=== PATIENT | female | born 1935 | race Caucasian/White ===

== ENCOUNTER → 2017-10-06 | Day surgery (SDC) | payer MEDICARE, OTHER ==
[~2017-10-06] MED LIST: AREDS PO; CARAFATE1 GM/10 ML PO; FENTANYL CITRATE/PF 100MCG/2 ML INJ ONE; FUROSEMIDE40 MG PO; IPRAT-ALBUT 0.5-3 ML NEB; LASIX80 MG PO; LIDOCAINE HCL 2% LOCAL INJ 5 ML SDV VIAL INJ ONE; MONTELUKAST SOD10 MG PO; NEXIUM40 MG PO; NORCO 10-325 T1 EACH PO; PROAIR HFA INH8.5 GM INH; PROPOFOL IV EMULSION 10 MG/ML 20 ML VIAL ONE; RESTASIS1 EACH OU; SPIRONOLACTONE PO; WELLBUTRIN XL300 MG PO
--- NOTE | 2017-10-06 11:08 | Operative Report ---
DATE OF PROCEDURE: October 06, 2017 PROCEDURE PERFORMED: Esophagogastroduodenoscopy with esophageal dilatation. PREOPERATIVE DIAGNOSIS: Esophageal stricture. POSTOPERATIVE DIAGNOSIS: Esophageal stricture. PREOPERATIVE MEDICATIONS: Consisted of general anesthesia. DESCRIPTION OF PROCEDURE: Under fluoroscopic guidance, the Olympus Cosyforyou video gastroscope was inserted into the patient's oropharynx, advanced to the esophagus and down to 36 cm where we encountered a stricture. The scope could not be passed beyond this area. We then inserted the Savary guidewire. Under fluoroscopic guidance, we positioned it in the stomach. At this point, we withdrew the endoscope and dilated the esophagus with a 12, 14, and 15-mm Savary dilator under fluoroscopic guidance. At this point, it was decided after 3 different sizes to stop the procedure. The guidewire and dilator were pulled from the patient's stomach, esophagus, hypopharynx, oropharynx and out of the patient's mouth, and the procedure was ended. In conclusion, we have an esophageal stricture, recurrent, fairly tight, would not allow the endoscope to pass. It was dilated with the Savary dilators, 12, 14, and 15 mm. Job#: [id number]
== END | disposition home or self-care (01) ==
LOC: OR 07:22
PROVIDERS: ATTEND Internal Medicine Gastroenterology
DX: K22.2 Esophageal obstruction (principal); K21.9 Gastro-esophageal reflux disease without esophagitis; K44.9 Diaphragmatic hernia without obstruction or gangrene; J44.9 Chronic obstructive pulmonary disease, unspecified; I10 Essential (primary) hypertension; Z88.0 Allergy status to penicillin; Z88.2 Allergy status to sulfonamides; Z88.8 Allergy status to other drugs, medicaments and biological substances; Z88.6 Allergy status to analgesic agent; Z88.1 Allergy status to other antibiotic agents; Z91.041 Radiographic dye allergy status; Z01.810 Encounter for preprocedural cardiovascular examination; Z96.642 Presence of left artificial hip joint
CPT/HCPCS: 43248; 93005; J2001; 43450; 76000

== ENCOUNTER 2017-12-17 19:22 | Emergency (ER) | payer MEDICARE, OTHER ==
[~2017-12-17] VITALS: Ht 170.2 cm; Wt 55.3 kg
[~2017-12-17 19:22] MED LIST changes: -FENTANYL CITRATE/PF 100MCG/2 ML INJ ONE; -LIDOCAINE HCL 2% LOCAL INJ 5 ML SDV VIAL INJ ONE; -PROPOFOL IV EMULSION 10 MG/ML 20 ML VIAL ONE
--- OUTSIDE RECORDS SUMMARY | 2017-12-17 19:27 | XMS REPORT | Continuity of Care Document ---
Author Author [facility] Interface Address Unknown Phone Unavailable Problems Problem Status Onset Date Classification Date Reported Comments Source FALL Active 04/23/2015 [facility] AC SUPERIOR AND INFERIOR PUBIC RAMI FX O Active 04/23/2015 [facility] S/P FALL, FRACTURE OF HIP, S/P L HEMIARTHROPLASTY ON Active 02/18/2011 [facility] Back pain Active Problem 04/29/2015 [facility] Congestive heart failure Active Problem 04/29/2015 [facility] COPD Resolved Problem 04/29/2015 [facility] Knee pain Active Problem 04/29/2015 [facility] ORIF - Open reduction and internal fixation of fracture Active Problem 04/29/2015 [facility] Osteoporosis Resolved Problem 04/29/2015 [facility] Back pain Active Problem 02/24/2011 [facility] Congestive heart failure Active Problem 02/24/2011 [facility] COPD Active Problem 02/24/2011 [facility] Knee pain Active Problem 02/24/2011 [facility] ORIF - Open reduction and internal fixation of fracture Active Problem 02/24/2011 [facility] Osteoporosis Active Problem 02/24/2011 [facility] FX NECK OF FEMUR NOS-OPN Active [facility] UNSP FRACTURE OF RIGHT PUBIS, INIT FOR C Active [facility] Medications Medication Details Route Status Patient Instructions Ordering Provider Order Date Source docusate sodium 100 mg oral capsule 100 mg, 1 cap, Route: PO, Drug form: CAP, BID, Dosing Weight 72.727, kg, Start date: 04/26/15 17:00:00, Duration: 30 day, Stop date: 05/26/15 9:00:00Notes: (Same as: Colace) (Do Not Crush) Inactive 04/26/2015 [facility] 200 ACTUAT Albuterol 0.09 MG/ACTUAT Metered Dose Inhaler [ProAir HFA] 1 puff, Route: INHALER, Drug Form: AERO/A, Dosing Weight 72.727, kg, QID, PRN Wheezing, Start date: 04/24/15 13:45:00, Duration: 30 day, Stop date: 05/24/15 13:44:00Notes: Same as: Ventolin HFA WASTE: Aerosol - Return to Pharmacy No Longer Active 04/24/2015 [facility] 200 ACTUAT Albuterol 0.09 MG/ACTUAT Metered Dose Inhaler [ProAir HFA] 1 puff, INHALER, QID, PRN for wheezing, # 8.5 gm, 0 Refill(s) Active 04/24/2015 [facility] montelukast 10 mg oral tablet 10 mg=1 tab, PO, Bedtime, # 30 tab, 0 Refill(s) Active 04/24/2015 [facility] furosemide 80 mg oral tablet 80 mg=1 tab, PO, Daily, # 30 tab, 0 Refill(s) Active 04/24/2015 [facility] spironolactone 100 mg oral tablet 100 mg=1 tab, PO, Daily, # 30 tab, 0 Refill(s) Active 04/24/2015 [facility] Acetaminophen 325 MG / Hydrocodone Bitartrate 10 MG Oral Tablet [[place] 10/325] 1 tab, PO, Q4H, PRN for pain, # 24 tab, 0 Refill(s) Active 04/24/2015 [facility] Esomeprazole 40 MG Enteric Coated Capsule 40 mg=1 cap, PO, Daily, # 30 cap, 0 Refill(s) Active 04/24/2015 [facility] Combivent Respimat 1 puff, INHALATION, QID, 0 Refill(s) Active 04/24/2015 [facility] Acetaminophen 325 MG / Hydrocodone Bitartrate 10 MG Oral Tablet [[place] 10/325] 1 tab, Route: PO, Drug Form: TAB, Dosing Weight 72.727, kg, Q4H, PRN Pain Score 6-10, Start date: 04/24/15 13:26:00, Duration: 30 day, Stop date: 05/24/15 13:25:00Notes: Do not exceed 4gm/day of acetaminophen. (Same as: [place] 325/10) No Longer Active 04/24/2015 [facility] Lasix 80 mg, 2 tab, Route: PO, Drug form: TAB, Daily, Dosing Weight 72.727, kg, Start date: 04/24/15 9:00:00, Duration: 30 day, Stop date: 05/23/15 9:00:00Notes: (Same as: Lasix) May cause GI upset. Give with food or milk. No Longer Active 04/24/2015 [facility] Spironolactone 100 mg, 2 tab, Route: PO, Drug form: TAB, Daily, Dosing Weight 72.727, kg, Start date: 04/24/15 9:00:00, Duration: 30 day, Stop date: 05/23/15 9:00:00Notes: (Same As: Aldactone) No Longer Active 04/24/2015 [facility] Protonix 40 mg, 1 tab, Route: PO, Drug form: ECTAB, Daily, Dosing Weight 72.727, kg, Start date: 04/24/15 9:00:00, Duration: 30 day, Stop date: 05/23/15 9:00:00Notes: Tablet should not be chewed or crushed. (Same as: Protonix) No Longer Active 04/24/2015 [facility] Bupropion 300 mg, 3 tab, Route: PO, Drug form: TAB, BID, Dosing Weight 72.727, kg, Start date: 04/23/15 22:30:00, Duration: 30 day, Stop date: 05/23/15 21:00:00Notes: (Same As: Wellbutrin) No Longer Active 04/24/2015 [facility] Singulair 10 mg, 1 tab, Route: PO, Drug form: TAB, Bedtime, Dosing Weight 72.727, kg, Start date: 04/23/15 21:00:00, Duration: 30 day, Stop date: 05/22/15 21:00:00Notes: (Same as:Singulair) No Longer Active 04/24/2015 [facility] Enoxaparin 30 mg, 0.3 mL, Route: SUB-Q, Drug form: INJ, [id number], Dosing Weight 72.727, kg, Start date: 04/23/15 19:00:00, Duration: 30 day, Stop date: 05/22/15 19:00:00Notes: (Same as: Lovenox) No Longer Active 04/24/2015 [facility] Tessalon Perles 100 mg, 1 cap, Route: PO, Drug form: CAP, TID, Dosing Weight 72.727, kg, PRN Cough, Start date: 04/23/15 18:12:00, Duration: 30 day, Stop date: 05/23/15 18:11:00Notes: (Same As: Pop Heard) "Do Not Crush" No Longer Active 04/24/2015 [facility] Dextromethorphan Hydrobromide 2 MG/ML / Guaifenesin 20 MG/ML Oral Solution 10 ml, Route: PO, Drug Form: SYRP, Dosing Weight 72.727, kg, Q4H, PRN Cough, Start date: 04/23/15 18:12:00, Duration: 30 day, Stop date: 05/23/15 18:11:00Notes: (dextromethorphan-guaifenesin 10-100mg/5ml 10 ml oral SOLN ud) (Same as: Reganitusaden PANTOJA) No Longer Active 04/24/2015 [facility] Tylenol 650 mg, 2 tab, Route: PO, Drug form: TAB, Q6H, Dosing Weight 72.727, kg, PRN Pain 1-3/Temp > 100.4 F, Start date: 04/23/15 18:12:00, Duration: 30 day, Stop date: 05/23/15 18:11:00Notes: Do not exceed 4 gm/day. (Same as: Tylenol) No Longer Active 04/24/2015 [facility] Albuterol 0.833 MG/ML / Ipratropium [place] 0.167 MG/ML Inhalant Solution [DuoNeb] 3 ml, Route: NEB, Drug Form: SOLN, Dosing Weight 72.727, kg, PRN, PRN Respiratory Protocol, Start date: 04/23/15 18:12:00, Duration: 30 day, Stop date: 05/23/15 19:11:00Notes: (Same as: Duoneb) No Longer Active 04/24/2015 [facility] Ondansetron 4 mg, 2 mL, Route: IVP, Drug form: INJ, Q6H, Dosing Weight 72.727, kg, PRN Nausea & Vomiting, Start date: 04/23/15 18:04:00, Duration: 30 day, Stop date: 05/23/15 18:03:00Notes: (Same as: Zofran) MEDICATION WASTE Product Size: 4 mg Product Wasted: ___ mg No Longer Active 04/24/2015 [facility] Acetaminophen 325 MG / Hydrocodone Bitartrate 5 MG Oral Tablet 1 tab, Route: PO, Drug Form: TAB, Dosing Weight 72.727, kg, Q4H, PRN Pain Score 4-6, Start date: 04/23/15 18:04:00, Duration: 30 day, Stop date: 05/23/15 18:03:00Notes: (Same as: [place] 325/5) Do not exceed 4gm/day of acetaminophen. No Longer Active 04/24/2015 [facility] Morphine 4 mg, 2 mL, Route: IVP, Drug form: INJ, Q4H, Dosing Weight 72.727, kg, PRN Pain Score 7-10, Start date: 04/23/15 18:04:00, Duration: 30 day, Stop date: 05/23/15 18:03:00Notes: (Same as:MORPhine Sulfate) No Longer Active 04/24/2015 [facility] Zofran 4 mg, Route: IVP, Drug form: INJ, ONCE, Dosing Weight 72.727, kg, Priority: STAT, Start date: 04/23/15 15:01:00, Stop date: 04/23/15 15:01:00 Inactive 04/23/2015 [facility] Morphine 4 mg, Route: IVP, Drug form: INJ, ONCE, Dosing Weight 72.727, kg, Priority: STAT, Start date: 04/23/15 15:01:00, Stop date: 04/23/15 15:01:00 Inactive 04/23/2015 [facility] Saline Flush 0.9% 10 mL, Route: IVP, Drug Form: INJ, Dosing Weight 72.727, kg, PRN, PRN Line Flush, Start date: 04/23/15 13:45:00, Duration: 30 day, Stop date: 05/23/15 14:44:00Notes: (Same as: BD Posiflush) No Longer Active 04/23/2015 [facility] Sodium Chloride 0.154 MEQ/ML Injectable Solution 500 mL, 500 ml/hr, Infuse Over: 1 hr, Route: IV, ONCE, Priority: STAT, Dosing Weight 72.727 kg, Start date: 04/23/15 13:45:00, Duration: 1 doses or times, Stop date: 04/23/15 13:45:00 Inactive 04/23/2015 [facility] [place] 10/325 oral tablet 2 tab, PO, Q4H, PRN, 30 tab, Pain, Substitution Allowed, Maintenance, TAB PO Active Amezquita 02/22/2011 [facility] acetaminophen 325 mg oral tablet 650 mg, 2 tab, PO, Q4H, PRN, 100 tab, Pain Score 1-3, Substitution Allowed, TAB PO Active Amezquita 02/22/2011 [facility] Lovenox 40 mg/0.4 mL subcutaneous solution 40 mg, 0.4 mL, SUB-Q, Daily, 5 mL, Substitution Allowed, SOLN SUB-Q Active Amezquita 02/22/2011 [facility] potassium chloride 10 mEq oral tablet, extended release 10 mEq, 1 tab, PO, Daily, 30 tab, Substitution Allowed, ERTAB PO Active Amezquita 02/22/2011 [facility] Lidoderm 5% topical film (patch) 1 patch, TOP, Daily, 30 patch, Substitution Allowed, Remove after 12 hours, FILMRemove after 12 hours TOP Active Amezquita 02/22/2011 [facility] ferrous sulfate 325 mg oral enteric coated tablet 325 mg, 1 tab, PO, Daily, 100 tab, Substitution Allowed, ECTAB PO Active Amezquita 02/22/2011 [facility] Lasix 40 mg oral tablet 40 mg, 1 tab, PO, Daily, 30 tab, Substitution Allowed, TAB PO Active Amezquita 02/22/2011 [facility] Wellbutrin SR 150 mg oral tablet, extended release 300 mg, 2 tab, PO, BID, 60 tab, Substitution Allowed, ERTAB PO Active Amezquita 02/22/2011 [facility] lidocaine patch removal 1 patch, Route: TOP, Bedtime, Drug form: ERFILM, Start date: 02/21/11 21:00:00, Duration: 30 day, Stop date: 03/22/11 21:00:00 TOP No Longer Active Amezquita 02/22/2011 [facility] Lidoderm 5% topical film (patch) 1 patch, Route: TOP, Daily, Drug form: FILM, Start date: 02/21/11 11:00:00, Duration: 30 day, Stop date: 03/23/11 9:00:00, Remove after 12 hoursRemove after 12 hours TOP No Longer Active Amezquita 02/21/2011 [facility] Nexium 40 mg, Route: PO, Daily, Start date: 02/20/11 9:00:00, Duration: 30 day, Stop date: 03/21/11 9:00:00 PO No Longer Active Amezquita 02/20/2011 [facility] Protonix 40 mg, Route: PO, Drug form: ECTAB, Before Dinner, Start date: 02/19/11 16:30:00, Duration: 30 day, Stop date: 03/20/11 16:30:00 PO No Longer Active Amezquita 02/19/2011 [facility] patients home med Nexium 40 mg patients home med Nexium 40 mg, 40 mg, Drug form: MISC, Route: PO, Before Breakfast, 02/19/11 16:30:00, Stop date: 03/20/11 7:30:00 PO No Longer Active Amezquita 02/19/2011 [facility] Protonix 40 mg, 1 tab, Route: PO, Drug form: ECTAB, QAM, Start date: 02/19/11 13:00:00, Duration: 30 day, Stop date: 03/21/11 9:00:00 PO No Longer Active Amezquita 02/19/2011 [facility] [place] 10/325 oral tablet 2 tab, Route: PO, Drug Form: TAB, Q4H, PRN Pain, Start date: 02/19/11 9:54:00, Duration: 30 day, Stop date: 03/21/11 9:53:00 PO No Longer Active Amezquita 02/19/2011 [facility] Lasix 40 mg oral tablet 40 mg, 1 tab, Route: PO, Drug form: TAB, Daily, Start date: 02/19/11 9:00:00, Duration: 30 day, Stop date: 03/20/11 9:00:00 PO No Longer Active Amezquita 02/19/2011 [facility] Lovenox 40 mg, Route: SUB-Q, Daily, Start date: 02/19/11 9:00:00, Duration: 30 day, Stop date: 03/20/11 9:00:00 SUB-Q No Longer Active Amezquita 02/19/2011 [facility] potassium chloride 10 mEq oral tablet, extended release 10 mEq, 1 tab, Route: PO, Drug form: ERTAB, Daily, Start date: 02/19/11 9:00:00, Duration: 30 day, Stop date: 03/20/11 9:00:00 PO No Longer Active Boccardo 02/19/2011 [facility] Wellbutrin SR 300 mg, 2 tab, Route: PO, Drug form: ERTAB, BID, Start date: 02/19/11 9:00:00, Duration: 30 day, Stop date: 03/20/11 17:00:00 PO No Longer Active Amezquita 02/19/2011 [facility] ferrous sulfate 325 mg, 1 tab, Route: PO, Drug form: ECTAB, Daily, Start date: 02/19/11 9:00:00, Duration: 30 day, Stop date: 03/20/11 9:00:00 PO No Longer Active Amezquita 02/19/2011 [facility] docusate 100 mg, 1 cap, Route: PO, Drug form: CAP, BID, Start date: 02/19/11 9:00:00, Duration: 30 day, Stop date: 03/20/11 17:00:00 PO No Longer Active Amezquita 02/19/2011 [facility] ferrous sulfate 324 mg oral tablet 324 mg, 1 tab, Route: PO, Drug form: TAB, Daily, Start date: 02/19/11 9:00:00, Duration: 30 day, Stop date: 03/20/11 9:00:00 PO No Longer Active Amezquita 02/19/2011 [facility] Combivent inhalation aerosol with adapter 2 puff, INHALER, QID, PRN, 14 gm, copd, Substitution Allowed, Maintenance INHALER No Longer Active 02/19/2011 [facility] Wellbutrin XL 300 mg, PO, BID, Substitution Allowed, TAB PO No Longer Active 02/19/2011 [facility] Lasix 80 mg oral tablet 80 mg, 1 tab, PO, Daily, Substitution Allowed PO No Longer Active 02/19/2011 [facility] Combivent inhalation aerosol with adapter 2 inhalation, Route: INHALATION, Drug Form: AERO/A, QID, Start date: 02/18/11 21:00:00, Duration: 30 day, Stop date: 03/20/11 17:00:00 INHALATION No Longer Active Amezquita 02/19/2011 [facility] zolpidem 5 mg, Route: PO, Drug form: TAB, Bedtime, PRN Insomnia, Start date: 02/18/11 19:56:00, Duration: 30 day, Stop date: 03/20/11 19:55:00 PO No Longer Active Amezquita 02/19/2011 [facility] Milk of Magnesia 30 mL, Route: PO, Drug Form: SUSP, Daily, PRN Constipation, Start date: 02/18/11 19:56:00, Duration: 30 day, Stop date: 03/20/11 19:55:00 PO No Longer Active Amezquita 02/19/2011 [facility] bisacodyl 10 mg, 1 supp, Route: OK, Drug form: SUPP, Bedtime, PRN Constipation, Start date: 02/18/11 19:56:00, Duration: 30 day, Stop date: 03/20/11 19:55:00 OK No Longer Active Amezquita 02/19/2011 [facility] acetaminophen-hydrocodone 325 mg-10 mg oral tablet 1 tab, Route: PO, Drug Form: TAB, Q4H, PRN Pain Score 7-10, Start date: 02/18/11 19:56:00, Duration: 30 day, Stop date: 03/20/11 19:55:00 PO No Longer Active Amezquita 02/19/2011 [facility] acetaminophen 650 mg, 2 tab, Route: PO, Drug form: TAB, Q4H, PRN Pain Score 1-3, Start date: 02/18/11 19:56:00, Duration: 30 day, Stop date: 03/20/11 19:55:00 PO No Longer Active Amezquita 02/19/2011 [facility] Saline Flush 0.9% 3 mL, Route: IVP, Drug Form: INJ, Q8H, PRN Line Flush, Start date: 02/18/11 19:56:00, Duration: 30 day, Stop date: 03/20/11 19:55:00, Administer at least once every 8 hoursAdminister at least once every 8 hours IVP No Longer Active Amezquita 02/19/2011 [facility] Ambien 10 mg, 1 tab, Route: PO, Drug form: TAB, Bedtime, PRN Insomnia, Start date: 02/18/11 19:29:00, Duration: 30 day, Stop date: 03/20/11 19:28:00 PO No Longer Active Amezquita 02/19/2011 [facility] Allergies, Adverse Reactions, Alerts Substance Category Reaction Severity Reaction type Status Date Reported Comments Source Serevent Assertion Propensity to adverse reactions to substance Active 07/02/2006 [facility] Demerol HCl drug allergy Allergy Active [facility] iodine propensity to adverse reactions to substance Adverse Reaction Active [facility] Keflex drug allergy Allergy Active [facility] Levaquin propensity to adverse reactions to substance Adverse Reaction Active [facility] penicillins drug allergy Allergy Active [facility] Plastic Tape propensity to adverse reactions to substance Adverse Reaction Active [facility] sulfa drugs propensity to adverse reactions to substance Adverse Reaction Active [facility] Immunizations Immunization Date Given Site Status Last Updated Comments Source Results Order Name Results Value Reference Range Date Interpretation Comments Source ELECTROLYTES AGAP 16.1 meq/L 10.0 - 20.0 04/26/2015 [facility] ELECTROLYTES eGFR 35 mL/min/1.73m2 04/26/2015 Result Comment: The eGFR is calculated using the CKD-EPI formula. In most young, healthy individuals the eGFR will be >90 mL/min/1.73m2. The eGFR declines with age. An eGFR of 60-89 may be normal in some populations, particularly the elderly, for whom the CKD-EPI formula has not been extensively validated. Use of the eGFR is not recommended in the following populations: Individuals with unstable creatinine concentrations, including patients and those with serious co-morbid conditions. Patients with extremes in muscle mass or diet. The data above are obtained from the National Kidney Disease Education Program (NKDEP) which additionally recommends that when the eGFR is used in patients with extremes of body mass index for purposes of drug dosing, the eGFR should be multiplied by the estimated BMI. [facility] ELECTROLYTES BUN 46 mg/dL 7 - 22 04/26/2015 [facility] ELECTROLYTES Creatinine Lvl 1.41 mg/dL 0.50 - 1.40 04/26/2015 [facility] ELECTROLYTES Glucose Lvl 82 mg/dL 70 - 99 04/26/2015 [facility] ELECTROLYTES Sodium Lvl 137 meq/L 135 - 145 04/26/2015 [facility] ELECTROLYTES Calcium Lvl 9.0 mg/dL 8.5 - 10.5 04/26/2015 [facility] ELECTROLYTES CO2 27 meq/L 24 - 32 04/26/2015 [facility] ELECTROLYTES Potassium Lvl 4.1 meq/L 3.5 - 5.1 04/26/2015 [facility] ELECTROLYTES Chloride Lvl 98 meq/L 95 - 109 04/26/2015 [facility] HEMATOLOGY Platelet 198 K/CMM 133 - 450 04/26/2015 [facility] HEMATOLOGY RDW 15.9 % 11.5 - 14.5 04/26/2015 [facility] MPV 7.4 fL 7.4 - 10.4 04/26/2015 [facility] MCHC 32.8 g/dL 32.0 - 36.0 04/26/2015 [facility] Hgb 10.6 g/dL 12.0 - 16.0 04/26/2015 [facility] RBC 3.85 M/CMM 4.20 - 5.40 04/26/2015 [facility] MCV 83.5 fL 80.0 - 98.0 04/26/2015 [facility] Hct 32.2 % 36.0 - 48.0 04/26/2015 [facility] MCH 27.4 pg 27.0 - 31.0 04/26/2015 [facility] WBC 5.4 K/CMM 3.7 - 10.4 04/26/2015 [facility] Monocytes # 0.4 K/CMM 0.0 - 0.8 04/26/2015 [facility] Basophils 0.3 % 0.0 - 1.0 04/26/2015 [facility] Eosinophils 2.0 % 0.0 - 4.0 04/26/2015 [facility] Lymphocytes # 0.4 K/CMM 1.0 - 5.5 04/26/2015 [facility] Segs-Bands # 4.4 K/CMM 1.5 - 8.1 04/26/2015 [facility] Segs 81.9 % 45.0 - 75.0 04/26/2015 [facility] Monocytes 7.7 % 2.0 - 12.0 04/26/2015 [facility] Lymphocytes 8.1 % 20.0 - 40.0 04/26/2015 [facility] Eosinophils # 0.1 K/CMM 0.0 - 0.5 04/26/2015 [facility] CHEM PANEL Phosphorus 4.1 mg/dL 2.5 - 4.5 04/24/2015 [facility] CHEM PANEL B/C Ratio 37 6 - 25 04/24/2015 [facility] CHEM PANEL Total Protein 6.4 g/dL 6.4 - 8.4 04/24/2015 [facility] CHEM PANEL Calcium Lvl 8.8 mg/dL 8.5 - 10.5 04/24/2015 [facility] CHEM PANEL eGFR 38 mL/min/1.73m2 04/24/2015 Result Comment: The eGFR is calculated using the CKD-EPI formula. In most young, healthy individuals the eGFR will be >90 mL/min/1.73m2. The eGFR declines with age. An eGFR of 60-89 may be normal in some populations, particularly the elderly, for whom the CKD-EPI formula has not been extensively validated. Use of the eGFR is not recommended in the following populations: Individuals with unstable creatinine concentrations, including patients and those with serious co-morbid conditions. Patients with extremes in muscle mass or diet. The data above are obtained from the National Kidney Disease Education Program (NKDEP) which additionally recommends that when the eGFR is used in patients with extremes of body mass index for purposes of drug dosing, the eGFR should be multiplied by the estimated BMI. [facility] CHEM PANEL Bili Total 1.0 mg/dL 0.2 - 1.3 04/24/2015 [facility] CHEM PANEL Globulin 2.9 g/dL 2.0 - 4.0 04/24/2015 [facility] CHEM PANEL Albumin Lvl 3.5 g/dL 3.5 - 5.0 04/24/2015 [facility] CHEM PANEL AST 21 unit/L 0 - 37 04/24/2015 [facility] CHEM PANEL Alk Phos 98 unit/L 39 - 136 04/24/2015 [facility] CHEM PANEL ALT 24 unit/L 0 - 65 04/24/2015 [facility] CHEM PANEL A/G Ratio 1.2 0.7 - 1.6 04/24/2015 [facility] CHEM PANEL CO2 25 meq/L 24 - 32 04/24/2015 [facility] CHEM PANEL AGAP 16.5 meq/L 10.0 - 20.0 04/24/2015 [facility] CHEM PANEL Creatinine Lvl 1.33 mg/dL 0.50 - 1.40 04/24/2015 [facility] CHEM PANEL BUN 49 mg/dL 7 - 22 04/24/2015 [facility] CHEM PANEL Glucose Lvl 33 mg/dL 70 - 99 04/24/2015 Result Comment: Critical Result(s) called to Alena Jones at 04/24/2015 06:59 by JAHAIRA. Read back OK. [facility] CHEM PANEL Potassium Lvl 4.5 meq/L 3.5 - 5.1 04/24/2015 [facility] CHEM PANEL Sodium Lvl 137 meq/L 135 - 145 04/24/2015 [facility] CHEM PANEL Chloride Lvl 100 meq/L 95 - 109 04/24/2015 [facility] CHEM PANEL Magnesium Lvl 3.2 mg/dL 1.8 - 2.4 04/24/2015 [facility] HEMATOLOGY RBC 3.86 M/CMM 4.20 - 5.40 04/24/2015 [facility] Hgb 10.6 g/dL 12.0 - 16.0 04/24/2015 [facility] WBC 5.8 K/CMM 3.7 - 10.4 04/24/2015 [facility] Platelet 180 K/CMM 133 - 450 04/24/2015 [facility] MPV 7.6 fL 7.4 - 10.4 04/24/2015 [facility] Hct 32.6 % 36.0 - 48.0 04/24/2015 [facility] MCV 84.6 fL 80.0 - 98.0 04/24/2015 [facility] MCH 27.4 pg 27.0 - 31.0 04/24/2015 [facility] MCHC 32.4 g/dL 32.0 - 36.0 04/24/2015 [facility] RDW 16.3 % 11.5 - 14.5 04/24/2015 [facility] PTT 41.3 s 22.9 - 35.8 04/24/2015 [facility] INR 1.13 0.85 - 1.17 04/24/2015 [facility] PT 14.8 s 12.0 - 14.7 04/24/2015 [facility] Eosinophils 0.7 % 0.0 - 4.0 04/24/2015 [facility] Basophils 0.4 % 0.0 - 1.0 04/24/2015 [facility] Segs-Bands # 4.6 K/CMM 1.5 - 8.1 04/24/2015 [facility] Monocytes # 0.4 K/CMM 0.0 - 0.8 04/24/2015 [facility] Lymphocytes # 0.7 K/CMM 1.0 - 5.5 04/24/2015 [facility] Lymphocytes 12.1 % 20.0 - 40.0 04/24/2015 [facility] Monocytes 7.0 % 2.0 - 12.0 04/24/2015 [facility] Segs 79.8 % 45.0 - 75.0 04/24/2015 [facility] URINE AND STOOL UA Urobilinogen <=1.0 mg/dL 0.1 - 1.0 04/24/2015 [facility] URINE AND STOOL UA Blood Small *ABN* (04/23/15 6:52 PM) Negative 04/24/2015 [facility] URINE AND STOOL UA Bili Negative *NA* (04/23/15 6:52 PM) Negative 04/24/2015 [facility] URINE AND STOOL UA Nitrite Negative (04/23/15 6:52 PM) Negative 04/24/2015 [facility] URINE AND STOOL UA Ketones Trace mg/dL Negative mg/dL 04/24/2015 [facility] URINE AND STOOL UA Glucose Negative mg/dL Negative mg/dL 04/24/2015 [facility] URINE AND STOOL UA Protein Negative mg/dL Negative mg/dL 04/24/2015 [facility] URINE AND STOOL UA Turbidity Clear (04/23/15 6:52 PM) Clear 04/24/2015 [facility] URINE AND STOOL UA Color Yellow *NA* (04/23/15 6:52 PM) Yellow 04/24/2015 [facility] URINE AND STOOL UA pH 5.0 5.0 - 8.0 04/24/2015 [facility] URINE AND STOOL UA Spec Grav 1.017 <=1.030 04/24/2015 [facility] URINE AND STOOL UA Sq Epi None Seen 04/24/2015 [facility] URINE AND STOOL UA WBC null 0 - 5 04/24/2015 [facility] URINE AND STOOL UA Leuk Est Negative (04/23/15 6:52 PM) Negative 04/24/2015 [facility] URINE AND STOOL UA RBC 1 /HPF 0 - 2 04/24/2015 [facility] URINE AND STOOL UA Hyal Cast 4 /LPF 0 - 2 04/24/2015 [facility] CARDIAC ENZYMES CK MB 5.6 ng/mL 0.5 - 3.6 04/23/2015 [facility] CARDIAC ENZYMES Troponin-I null 0.00 - 0.40 04/23/2015 [facility] CARDIAC ENZYMES Total CK 254 unit/L 12 - 191 04/23/2015 [facility] CARDIAC ENZYMES BNP 86 pg/mL <=100 pg/mL 04/23/2015 [facility] CARDIAC ENZYMES CK MB Index 2.2 0.0 - 2.5 04/23/2015 [facility] CHEM PANEL eGFR 37 mL/min/1.73m2 04/23/2015 Result Comment: The eGFR is calculated using the CKD-EPI formula. In most young, healthy individuals the eGFR will be >90 mL/min/1.73m2. The eGFR declines with age. An eGFR of 60-89 may be normal in some populations, particularly the elderly, for whom the CKD-EPI formula has not been extensively validated. Use of the eGFR is not recommended in the following populations: Individuals with unstable creatinine concentrations, including patients and those with serious co-morbid conditions. Patients with extremes in muscle mass or diet. The data above are obtained from the National Kid[employer] Disease Education Program (NKDEP) which additionally recommends that when the eGFR is used in patients with extremes of body mass index for purposes of drug dosing, the eGFR should be multiplied by the estimated BMI. [facility] CHEM PANEL B/C Ratio 33 6 - 25 04/23/2015 [facility] CHEM PANEL Globulin 3.6 g/dL 2.0 - 4.0 04/23/2015 [facility] CHEM PANEL A/G Ratio 1.1 0.7 - 1.6 04/23/2015 [facility] CHEM PANEL Bili Total 1.0 mg/dL 0.2 - 1.3 04/23/2015 [facility] CHEM PANEL Alk Phos 111 unit/L 39 - 136 04/23/2015 [facility] CHEM PANEL AST 29 unit/L 0 - 37 04/23/2015 [facility] CHEM PANEL AGAP 13.3 meq/L 10.0 - 20.0 04/23/2015 [facility] CHEM PANEL Albumin Lvl 4.0 g/dL 3.5 - 5.0 04/23/2015 [facility] CHEM PANEL Total Protein 7.6 g/dL 6.4 - 8.4 04/23/2015 [facility] CHEM PANEL ALT 28 unit/L 0 - 65 04/23/2015 [facility] CHEM PANEL Sodium Lvl 136 meq/L 135 - 145 04/23/2015 [facility] CHEM PANEL CO2 28 meq/L 24 - 32 04/23/2015 [facility] CHEM PANEL Chloride Lvl 99 meq/L 95 - 109 04/23/2015 [facility] CHEM PANEL Potassium Lvl 4.3 meq/L 3.5 - 5.1 04/23/2015 [facility] CHEM PANEL Calcium Lvl 9.3 mg/dL 8.5 - 10.5 04/23/2015 [facility] CHEM PANEL BUN 45 mg/dL 7 - 22 04/23/2015 [facility] CHEM PANEL Glucose Lvl 77 mg/dL 70 - 99 04/23/2015 [facility] CHEM PANEL Creatinine Lvl 1.35 mg/dL 0.50 - 1.40 04/23/2015 [facility] HEMATOLOGY PT 13.9 s 12.0 - 14.7 04/23/2015 [facility] INR 1.04 0.85 - 1.17 04/23/2015 [facility] PTT 47.7 s 22.9 - 35.8 04/23/2015 [facility] MPV 7.3 fL 7.4 - 10.4 04/23/2015 [facility] MCHC 32.8 g/dL 32.0 - 36.0 04/23/2015 [facility] RDW 16.0 % 11.5 - 14.5 04/23/2015 [facility] RBC 4.21 M/CMM 4.20 - 5.40 04/23/2015 [facility] WBC 8.1 K/CMM 3.7 - 10.4 04/23/2015 [facility] Hgb 11.6 g/dL 12.0 - 16.0 04/23/2015 [facility] MCH 27.5 pg 27.0 - 31.0 04/23/2015 [facility] MCV 83.9 fL 80.0 - 98.0 04/23/2015 [facility] Hct 35.3 % 36.0 - 48.0 04/23/2015 [facility] Platelet 190 K/CMM 133 - 450 04/23/2015 [facility] Monocytes # 0.5 K/CMM 0.0 - 0.8 04/23/2015 [facility] Lymphocytes # 0.5 K/CMM 1.0 - 5.5 04/23/2015 [facility] Segs 87.4 % 45.0 - 75.0 04/23/2015 [facility] Basophils 0.3 % 0.0 - 1.0 04/23/2015 [facility] Lymphocytes 6.4 % 20.0 - 40.0 04/23/2015 [facility] Monocytes 5.8 % 2.0 - 12.0 04/23/2015 [facility] Segs-Bands # 7.1 K/CMM 1.5 - 8.1 04/23/2015 [facility] Eosinophils 0.1 % 0.0 - 4.0 04/23/2015 [facility] Brain wo contrast CT Brain wo contrast CT Brain wo contrast CT 04/23/2015 1:46 PM [employer] TECHNICIAN Ordering Physician: Dannie Martinez MD CLINICAL HISTORY: Pain Post Trauma; fall injury COMPARISON: None TECHNIQUE: Axial images were obtained from the foramen magnum to the vertex without the use of intravenous contrast on a multidetector CT. Coronal and sagittal reformations were created. FINDINGS: INTRACRANIAL VAULT: No acute intracranial hemorrhage or secondary signs of increased intracranial pressure are present. No large territorial ischemic infarction is present. Bilateral patchy subcortical and deep white matter hypoattenuating foci with mild diffuse volume loss are present. Bifrontal lobe atrophy is present. No intracranial mass or midline shift is present. Intracranial atherosclerotic calcific disease is present. ORBITS, MASTOIDS AND PARANASAL SINUSES: Visualized orbits are normal. Sinuses and air cells are clear. CALVARIUM: Calvarium is intact. IMPRESSION: No acute abnormality of the brain. Chronic microangiopathic ischemic changes with diffuse volume loss. SL: [id number] 04/23/2015 - - Read by: Tarun Guerrero MD Dictated Date/time: 04/23/15 14:39 Electronically Signed by: Tarun Guerrero MD 04/23/15 14:41 FINAL REPORT [facility] Hip 2/3 views uni DX Hip 2/3 views uni DX EXAM: Right Hip 2/3 views uni DX DATE: 04/23/2015 1:46 PM [employer] TECHNICIAN INDICATION: Pain Post Trauma COMPARISON: None. IMPRESSION: Postoperative internal fixation of the proximal right femur. Acute fracture of the superior and inferior right pubic rami. SL: [id number] 04/23/2015 - - Read by: Obie Doshi MD Dictated Date/time: 04/23/15 14:32 Electronically Signed by: Obie Doshi MD 04/23/15 14:32 FINAL REPORT [facility] Pelvis AP DX Pelvis AP DX EXAM: Pelvis AP DX DATE: 04/23/2015 1:46 PM [employer] TECHNICIAN INDICATION: Pain Post Trauma COMPARISON: None. IMPRESSION: Diffuse osteopenia. Postoperative left hip hemiarthroplasty is present. Postoperative internal fixation of the right hip. Acute fracture of the superior and inferior right pubic rami. Old fracture of the superior and inferior left pubic rami. SL: [id number] 04/23/2015 - - Read by: Obie Doshi MD Dictated Date/time: 04/23/15 14:31 Electronically Signed by: Obie Doshi MD 04/23/15 14:32 FINAL REPORT [facility] Spine cervical 2 or 3 view DX Spine cervical 2 or 3 view DX Study: Spine cervical 2 or 3 view DX Clinical Indication: Pain Post Trauma; Comparison: None FINDINGS: Diffuse osteopenia. No fractures or subluxations. Alignment of the cervical spine is grossly anatomic. The prevertebral soft tissues and atlanto-dental interspace are normal. Mild cervical spondylosis and marked facet arthrosis. Atherosclerotic calcification of the right carotid bifurcation. If there is further concern or neurological abnormalities on clinical exam, recommend further radiographic views, MRI or CT of the cervical spine for complete assessment. IMPRESSION: 1. No definite acute fracture or pathologic subluxation detected. SL: [id number] 04/23/2015 - - Read by: Obie Doshi MD Dictated Date/time: 04/23/15 14:33 Electronically Signed by: Obie Doshi MD 04/23/15 14:33 FINAL REPORT [facility] Ribs unilateral 3 views w PA chest DX Ribs unilateral 3 views w PA chest DX Study: Right rib series, 3 views Clinical Indication: Injury with right chest pain Comparison: None FINDINGS: Multiple views of the right ribs show no acute displaced rib fracture. Chronic healed left rib fracture is seen. Cardiac silhouette is normal in size. There is no pleural effusion or pneumothorax. IMPRESSION: No acute right rib fracture. SL: [id number] 04/23/2015 - - Read by: Sky Patterson MD Dictated Date/time: 04/23/15 14:57 Electronically Signed by: Sky Patterson MD 04/23/15 14:58 FINAL REPORT [facility] CHEMISTRY CO2 26 meq/L 24 - 32 02/20/2011 Normal [facility] CHEMISTRY Calcium Lvl 8.7 mg/dL 8.5 - 10.5 02/20/2011 Normal [facility] CHEMISTRY Chloride Lvl 101 meq/L 95 - 109 02/20/2011 Normal [facility] CHEMISTRY Potassium Lvl 3.6 meq/L 3.5 - 5.1 02/20/2011 Normal [facility] CHEMISTRY Sodium Lvl 140 meq/L 135 - 145 02/20/2011 Normal [facility] CHEMISTRY Glucose Lvl 102 mg/dL 02/20/2011 NA 1Interpretive Data: Reference Ranges : 0 - 7 days : 41 - 90 mg/dL7 days - 150 yrs : 70 - 99 mg/dL (fasting), based on the clinical recommendations of the [place] [employer]. [facility] CHEMISTRY BUN 11 mg/dL 7 - 22 02/20/2011 Normal [facility] CHEMISTRY Creatinine Lvl 0.8 mg/dL 0.5 - 1.4 02/20/2011 Normal [facility] CHEMISTRY AGAP 16.6 meq/L 10.0 - 20.0 02/20/2011 Normal [facility] HEMATOLOGY Lymphocytes 10.9 % 20.0 - 40.0 02/20/2011 [facility] HEMATOLOGY Monocytes 6.4 % 2.0 - 12.0 02/20/2011 [facility] HEMATOLOGY Eosinophils # 0.0 K/CMM 0.0 - 0.5 02/20/2011 [facility] HEMATOLOGY Monocytes # 0.4 K/CMM 0.0 - 0.8 02/20/2011 [facility] HEMATOLOGY Lymphocytes # 0.6 K/CMM 1.0 - 5.5 02/20/2011 [facility] HEMATOLOGY Basophils # 0.0 K/CMM 0.0 - 0.2 02/20/2011 Normal [facility] HEMATOLOGY Segs-Bands # 4.6 K/CMM 1.5 - 8.1 02/20/2011 [facility] HEMATOLOGY Basophils 0.2 % 0.0 - 1.0 02/20/2011 [facility] HEMATOLOGY Eosinophils 0.0 % 0.0 - 4.0 02/20/2011 [facility] HEMATOLOGY Segs 82.5 % 45.0 - 75.0 02/20/2011 [facility] HEMATOLOGY Platelet 275 K/CMM 133 - 450 02/20/2011 Normal [facility] HEMATOLOGY MCHC 34.1 g/dL 32.0 - 36.0 02/20/2011 Normal [facility] HEMATOLOGY MPV 7.2 fL 7.4 - 10.4 02/20/2011 LOW [facility] HEMATOLOGY RDW 15.1 % 11.5 - 14.5 02/20/2011 [facility] HEMATOLOGY Hgb 9.2 g/dL 12.0 - 16.0 02/20/2011 LOW [facility] HEMATOLOGY MCH 28.0 pg 27.0 - 31.0 02/20/2011 Normal [facility] HEMATOLOGY Hct 27.1 % 36.0 - 48.0 02/20/2011 LOW [facility] HEMATOLOGY RBC 3.30 M/CMM 4.20 - 5.40 02/20/2011 LOW [facility] HEMATOLOGY MCV 82.0 fL 81.0 - 99.0 02/20/2011 Normal [facility] HEMATOLOGY WBC 5.6 K/CMM 3.7 - 10.4 02/20/2011 Normal [facility] HEMATOLOGY Hct 25.7 % 36.0 - 48.0 02/19/2011 LOW [facility] HEMATOLOGY Hgb 8.8 g/dL 12.0 - 16.0 02/19/2011 LOW [facility] CHEMISTRY AGAP 9.3 meq/L 10.0 - 20.0 02/19/2011 LOW [facility] CHEMISTRY Calcium Lvl 8.4 mg/dL 8.5 - 10.5 02/19/2011 LOW [facility] CHEMISTRY CO2 32 meq/L 24 - 32 02/19/2011 Normal [facility] CHEMISTRY Chloride Lvl 99 meq/L 95 - 109 02/19/2011 Normal [facility] CHEMISTRY Potassium Lvl 3.3 meq/L 3.5 - 5.1 02/19/2011 LOW [facility] CHEMISTRY Sodium Lvl 137 meq/L 135 - 145 02/19/2011 Normal [facility] CHEMISTRY Creatinine Lvl 0.9 mg/dL 0.5 - 1.4 02/19/2011 Normal [facility] CHEMISTRY BUN 12 mg/dL 7 - 22 02/19/2011 Normal [facility] CHEMISTRY Glucose Lvl 112 mg/dL 02/19/2011 NA 2Interpretive Data: Reference Ranges : 0 - 7 days : 41 - 90 mg/dL7 days - 150 yrs : 70 - 99 mg/dL (fasting), based on the clinical recommendations of the [place] [employer]. [facility] Vital Signs Vital Sign Value Date Comments Source Temperature Oral (F) 98.1 F 04/26/2015 [facility] Systolic (mm Hg) 151 04/26/2015 [facility] Diastolic (mm Hg) 95 04/26/2015 [facility] Respitory Rate 14 04/26/2015 [facility] Heart Rate 114 04/26/2015 [facility] Systolic (mm Hg) 129 04/26/2015 [facility] Diastolic (mm Hg) 61 04/26/2015 [facility] Temperature Oral (F) 98.6 F 04/26/2015 [facility] Heart Rate 86 04/26/2015 [facility] Heart Rate 86 04/26/2015 [facility] Respitory Rate 14 04/26/2015 [facility] Systolic (mm Hg) 129 04/26/2015 [facility] Diastolic (mm Hg) 61 04/26/2015 [facility] Temperature Oral (F) 98.6 F 04/26/2015 [facility] Respitory Rate 18 04/26/2015 [facility] Weight 72.727 04/23/2015 [facility] BMI Calculated 26.68 04/23/2015 [facility] Height 165.1 cm 04/23/2015 [facility] Diastolic (mm Hg) 64 02/22/2011 [facility] Respitory Rate 18 02/22/2011 [facility] Systolic (mm Hg) 144 02/22/2011 [facility] Temperature Oral (F) 98.7 F 02/22/2011 [facility] Heart Rate 97 02/22/2011 [facility] Systolic (mm Hg) 150 02/21/2011 [facility] Diastolic (mm Hg) 71 02/21/2011 [facility] Respitory Rate 20 02/21/2011 [facility] Heart Rate 105 02/21/2011 [facility] Temperature Oral (F) 98.5 F 02/21/2011 [facility] Systolic (mm Hg) 139 02/21/2011 [facility] Diastolic (mm Hg) 61 02/21/2011 [facility] Temperature Oral (F) 98.1 F 02/21/2011 [facility] Heart Rate 101 02/21/2011 [facility] Respitory Rate 20 02/21/2011 [facility] Weight 77.273 02/18/2011 [facility] Height 170.18 cm 02/18/2011 [facility] Encounters Location Location Details Encounter Type Encounter Number Reason For Visit Attending Provider ADM Date DC Date Status Source [facility] [place] [id number] S/P FALL, FRACTURE OF HIP, S/P L HEMIARTHROPLASTY ON ELIZABETH AMEZQUITA 02/18/2011 02/22/2011 Active [facility] Inpatient [id number] Humphrey Madiha 04/23/2015 04/26/2015 [facility] Procedures Procedure Code Date Perfomer Comments Source Hip joint operations [id number] [facility]
--- NOTE | 2017-12-17 20:50 | Diagnostic Imaging Report ---
Left knee 3 - views HISTORY: Pain COMPARISON: 05/09/2012. FINDINGS: No displaced fracture. Generalized osteopenia. Minimally displaced fracture of the inferior pole of the patella. Small suprapatellar joint effusion. IMPRESSION: Minimally displaced fracture of the inferior pole of the patella. Signed by: Dr. Jerica Gallagher M.D. on 12/17/2017 8:47 PM
[2017-12-17] MEDS ORDERED: TETANUS/DIPHTHERIA TOX ADULT 0.5 ML SYR IM ONE (21:15)
--- NOTE | 2017-12-17 21:37 | Diagnostic Imaging Report ---
Exam: Head CT without contrast History: Trauma, fall, laceration. Comparison studies: Head CT 08/19/2016 Technique: Axial images were obtained from the skull base to the vertex. Coronal and sagittal images reconstructed from the axial data. Dose modulation, iterative reconstruction, and/or weight based adjustment of the mA/kV was utilized to reduce the radiation dose to as low as reasonably achievable. Radiation dose: Total DLP: 1090 mGy*cm. Estimated effective dose: DLP x 0.015 Intravenous contrast: None Findings: Exam somewhat limited by artifacts related to patient motion. In spite of this limitation: Scalp: Left frontal-supraorbital soft tissue hematoma and laceration area no retained hyperdense foreign body. Bones: No fractures, blastic or lytic lesions. Brain volume: Generalized volume loss superimposed on moderate disproportionate bilateral frontal and temporal lobe volume loss. Ventricles: Moderate compensatory dilatation. Extra-axial spaces: No masses, no fluid collection. Parenchyma: No mass, acute hemorrhage or acute cortical vascular insults. A few scattered hypodensities in the supratentorial white matter are nonspecific but most compatible with chronic microvascular ischemic changes. Sellar/suprasellar region: No abnormalities. Craniocervical junction: Patent foramen magnum. No Chiari one malformation. Incidental findings: Atherosclerotic calcifications in the carotid siphons and left intradural vertebral artery. IMPRESSION: Exam somewhat limited by artifacts related to patient motion. In spite of this limitation: 1. Left frontal-supraorbital soft tissue hematoma and laceration. No retained hyperdense foreign body identified. No underlying fracture. 2. No acute intracranial abnormalities or other changes from the previous head CT of 08/19/2016. 3. Generalized volume loss with a frontotemporal predominance. 4. Moderate chronic microvascular ischemic changes. Signed by: Dr. Dimitrios Page M.D. on 12/17/2017 9:33 PM
[2017-12-17 21:38] VITALS: BP 146/84
== END 2017-12-17 21:40 | disposition home or self-care (01) ==
LOC: FSED 19:22
DX: S01.112A Laceration without foreign body of left eyelid and periocular area, initial encounter (principal); S01.81XA Laceration without foreign body of other part of head, initial encounter; S82.035A Nondisplaced transverse fracture of left patella, initial encounter for closed fracture; W01.0XXA Fall on same level from slipping, tripping and stumbling without subsequent striking against object, initial encounter; Y92.008 Other place in unspecified non-institutional (private) residence as the place of occurrence of the external cause; J44.9 Chronic obstructive pulmonary disease, unspecified; K21.9 Gastro-esophageal reflux disease without esophagitis; Z96.643 Presence of artificial hip joint, bilateral; Z87.891 Personal history of nicotine dependence
CPT/HCPCS: 70450; 90471; 90714; 99284